=== PATIENT | female | born 1995 | race American Indian/Alaskan Native ===

== ENCOUNTER 2018-01-14 07:38 | Emergency (ER) | payer OTHER ==
[2018-01-14 07:59] VITALS: BP 95/60
--- NOTE | 2018-01-14 08:43 | EDM.PDOC ---
ED HPI GENERAL MEDICAL PROBLEM - General Chief Complaint: Cardiovascular Problem Stated Complaint: LOW BLOOD PRESSURE Time Seen by Provider: 01/14/18 08:12 Source of Information: Reports: Patient, RN Notes Reviewed, Other (deputy probation officer) History Limitations: Reports: No Limitations - History of Present Illness INITIAL COMMENTS - FREE TEXT/NARRATIVE: The patient is an inmate at the [facility]. She states that she felt lightheaded while standing in line for breakfast this morning. She states that she had only been standing for about 2 or 3 minutes, and when she sat down, she did not feel any better. She was taken to the nurse's station, where she states she vomited. No prior similar symptoms. The patient states that she was started on prazosin last night, to help treat her nightmares. The patient does not have a history of hypertension. Here in the ED, the patient's initial BP is found to be 95/60 with a HR of 65. The patient does not of the PCP outside of the [facility]. - Related Data Allergies Allergy/AdvReac Type Severity Reaction Status Date / Time No Known Allergies Allergy Verified 01/14/18 07:52 Home Meds: Home Meds Escitalopram [Lexapro] 10 mg PO BEDTIME 01/14/18 [History] Omeprazole 20 mg PO DAILY 01/14/18 [History] Prazosin HCl [Prazosin] 1 mg PO BEDTIME 01/14/18 [History] QUEtiapine Fumarate [Seroquel] 50 mg PO BEDTIME 01/14/18 [History] Past Medical History Gastrointestinal History: Reports: GERD Psychiatric History: Reports: Anxiety, Depression, Other (See Below) (Insomnia) Endocrine/Metabolic History: Reports: Obesity/BMI 30+ - Past Surgical History GI Surgical History: Reports: Cholecystectomy Social & Family History - Tobacco Use Smoking Status *Q: Never Smoker - Caffeine Use Caffeine Use: Reports: None - Alcohol Use Alcohol Use History: Yes Alcohol Use Frequency: Socially - Recreational Drug Use Recreational Drug Use: Yes Drug Use in Last 12 Months: Yes Recreational Drug Type: Reports: Methamphetamine (last smoked and injected in 2017) - Living Situation & Occupation Living situation: Reports: Single, Other ([facility]) ED ROS GENERAL - Review of Systems Review Of Systems: ROS reveals no pertinent complaints other than HPI. ED EXAM, GENERAL - Physical Exam Exam: See Below Exam Limited By: No Limitations General Appearance: Alert, WD/WN, No Apparent Distress Eye Exam: Bilateral Eye: EOMI, Normal Inspection Ears: Normal External Exam, Hearing Grossly Normal Nose: Normal Inspection Throat/Mouth: Normal Inspection, Normal Lips, Normal Voice, No Airway Compromise Head: Atraumatic, Normocephalic Neck: Normal Inspection, Full Range of Motion Respiratory/Chest: No Respiratory Distress, Lungs Clear, Normal Breath Sounds, No Accessory Muscle Use Cardiovascular: Normal Peripheral Pulses, Regular Rate, Rhythm, No Edema, No Gallop, No JVD, No Murmur, No Rub Peripheral Pulses: 4+: Radial (L), Radial (R) GI/Abdominal: Normal Bowel Sounds, Soft, Non-Tender, No Organomegaly, No Distention, No Abnormal Bruit, No Mass (Female) Exam: Deferred Rectal (Female) Exam: Deferred Back Exam: Normal Inspection, Full Range of Motion, NT Extremities: Normal Inspection, Normal Range of Motion, No Pedal Edema, Normal Capillary Refill Neurological: Alert, Oriented, Normal Cognition, No Motor/Sensory Deficits Psychiatric: Normal Affect Skin Exam: Warm, Dry, Intact, Normal Color, No Rash Course - Vital Signs Last Recorded V/S: Last Vital Signs Temp 36.9 C 01/14/18 07:57 Pulse 65 01/14/18 07:57 Resp 20 01/14/18 07:57 BP 95/60 01/14/18 07:57 Pulse Ox 98 01/14/18 07:57 Orthostatic Blood Pressure [ 99/67 Standing] Orthostatic Blood Pressure [ 106/68 Sitting] Orthostatic Blood Pressure [ 93/55 Supine] - Orders/Labs/Meds Orders: Active Orders 24 hr Category Date Time Status Orthostatic Vital Signs [RC] STAT Care 01/14/18 08:14 Active - Re-Assessments/Exams Free Text/Narrative Re-Assessment/Exam: 01/14/18 08:35 The patient was started on prazosin 1 mg last night, to help treat nightmares, and while this is a recognized indication for this medicine, it is also a powerful alpha-1 haley and antihypertensive. I believe it would be better to get this medication if the patient has a history of hypertension, which this patient does not. I'm therefore recommending that the patient discontinue it. The duration of this medication is 10 to 24 hours, therefore she will likely be lightheaded upon standing for most of the day, but should feel better by tomorrow. The patient is not orthostatic. This is consistent with her hypotension being due to the prazosin, as opposed to intravascular depletion. I do not see an indication for any other workup at this time, given her history and entirely negative physical examination. If her symptoms persist, or if new symptoms develop, I would like her to return to the ED. Departure - Departure Time of Disposition: 08:37 Disposition: Home, Self-Care 01 Condition: Good Clinical Impression: Hypotension due to medication Instructions: Hypotension, [id number] Referrals: Anyi Mcqueen PA-C [Primary Care Provider] - Forms: ED Department Discharge Additional Instructions: You were seen in the emergency room for lightheadedness, after being started on prazosin last night. In the ER, your blood pressure was found to be low at 95/60. Workup in the ER included positional blood pressure checks, which were normal. You are not intravascularly depleted. Based on your history and physical examination, the cause of your low blood pressure is the prazosin, and while this medication can be used to help treat nightmares, it is best used on someone who also has hypertension. We recommend that you DISCONTINUE taking prazosin. Prazosin will continue to lower your blood pressure for 10 to 24 hours from the time you took it, so you should expect to remain lightheaded when standing until later today or even tonight, however, you should feel better by tomorrow. If your low blood pressure persists, or if new symptoms develop, please return to the ER for reevaluation. - My Orders Last 24 Hours: My Active Orders 01/14/18 08:14 Orthostatic Vital Signs [RC] STAT - Assessment/Plan Last 24 Hours: My Active Orders 01/14/18 08:14 Orthostatic Vital Signs [RC] STAT
== END 2018-01-14 08:52 | disposition home or self-care (01) ==
LOC: JD.ED 07:38 → EEVIPCON 07:38 → JD.ED 08:52
DX: I95.2 Hypotension due to drugs (principal); E66.9 Obesity, unspecified
CPT/HCPCS: 99283; 99284

== ENCOUNTER 2018-05-04 22:01 | Emergency (ER) | payer OTHER ==
[2018-05-04 22:25] VITALS: BP 103/51
[2018-05-04] MEDS ORDERED: Sodium Chloride 0.9% 10 ML Syringe FLUSH PRN (22:52)
[2018-05-04] MEDS ORDERED: Ondansetron 4 MG/2 ML SDV IVPUSH ONE (22:52)
[2018-05-04] MEDS ORDERED: Sodium Chloride 0.9% 1,000 ML IV SCH (23:00)
--- NOTE | 2018-05-05 01:17 | EDM.PDOCBH ---
ED HPI GENERAL MEDICAL PROBLEM - General Chief Complaint: Drug or Alcohol Abuse Stated Complaint: TAKEN PILLS SENT FROM [facility] Time Seen by Provider: 05/04/18 22:29 Source of Information: Reports: Patient History Limitations: Reports: No Limitations - History of Present Illness INITIAL COMMENTS - FREE TEXT/NARRATIVE: [facility] [place] for acetaminophen overdose. She says she took the meds at 1930 this evening. She denies being suicidal. She says she took them because she was hurting. She has some nausea and upper abdominal pain. She has no fever, chills, cough, congestion, runny nose, chest pain or shortness of breath. She has no depression. She has hurt herself in the past but she says again that she was not trying to kill herself tonight. She also took 2 other capsules. She is not sure what these were. Onset: Sudden Duration: Hour(s): (1930 tonight) Location: Reports: Abdomen Quality: Reports: Ache Severity: Mild Improves with: Reports: None Worsens with: Reports: None Associated Symptoms: Reports: Nausea/Vomiting. Denies: Chest Pain, Fever/Chills , Headaches, Shortness of Breath Abdominal Pain Score (Numeric/FACES): 8 - Related Data Allergies Allergy/AdvReac Type Severity Reaction Status Date / Time No Known Allergies Allergy Verified 05/04/18 22:26 Home Meds: Home Meds Escitalopram [Lexapro] 20 mg PO DAILY 05/04/18 [History] Mirtazapine 15 mg PO DAILY 05/04/18 [History] Triamcinolone Acetonide 1 applicful TOP DAILY 05/04/18 [History] Past Medical History - Past Health History Medical/Surgical History: Denies Medical/Surgical History Gastrointestinal History: Reports: GERD Psychiatric History: Reports: Anxiety, Depression, Other (See Below) Endocrine/Metabolic History: Reports: Obesity/BMI 30+ - Past Surgical History GI Surgical History: Reports: Cholecystectomy Social & Family History - Tobacco Use Smoking Status *Q: Never Smoker Second Hand Smoke Exposure: No - Caffeine Use Caffeine Use: Reports: Coffee, Soda - Recreational Drug Use Recreational Drug Use: Yes Drug Use in Last 12 Months: No - Living Situation & Occupation Living situation: Reports: Single, Other ([facility]) ED ROS GENERAL - Review of Systems Review Of Systems: See Below Constitutional: Reports: No Symptoms HEENT: Reports: No Symptoms Respiratory: Reports: No Symptoms Cardiovascular: Reports: No Symptoms Endocrine: Reports: No Symptoms GI/Abdominal: Reports: Abdominal Pain, Nausea. Denies: Diarrhea, Vomiting : Reports: No Symptoms ED EXAM, BEHAVIORAL HEALTH - Physical Exam Exam: See Below Exam Limited By: No Limitations General Appearance: Alert, No Apparent Distress Ears: Normal External Exam Nose: Normal Inspection Head: Atraumatic, Normocephalic Neck: Normal Inspection Respiratory/Chest: No Respiratory Distress, Lungs Clear, Normal Breath Sounds Cardiovascular: Regular Rate, Rhythm, No Edema, No Murmur GI/Abdominal: Soft, Non-Tender, No Organomegaly, No Mass Back Exam: Normal Inspection Extremities: Normal Inspection Neurological: Alert, No Motor/Sensory Deficits, Oriented x 3 COURSE, BEHAVIORAL HEALTH COMP - Course Vital Signs: Last Vital Signs Temp 98.2 F 05/04/18 22:19 Pulse 50 L 05/04/18 22:19 Resp 16 05/04/18 22:19 BP 103/51 L 05/04/18 22:19 Pulse Ox 98 05/04/18 22:19 Orders, Labs, Meds: Active Orders 24 hr Category Date Time Status Cardiac Monitoring [RC] . DIRECTED Care 05/04/18 22:52 Active Peripheral IV Care [RC] . DIRECTED Care 05/04/18 22:53 Active Sodium Chloride 0.9% [Normal Saline] 1,000 ml Med 05/04/18 23:00 Active IV .BOLUS Sodium Chloride 0.9% [Saline Flush] Med 05/04/18 22:52 Active 10 ml FLUSH ASDIRECTED PRN ED Antiemetic Medication Reflex [OM.PC] Stat Oth 05/04/18 22:52 Ordered Peripheral IV Insertion Adult [OM.PC] Stat Oth 05/04/18 22:52 Ordered Medication Orders Sodium Chloride (Normal Saline) 1,000 mls @ 1,000 mls/hr IV .BOLUS TOM Last Admin: 05/04/18 23:29 Dose: 1,000 mls/hr Sodium Chloride (Saline Flush) 10 ml FLUSH ASDIRECTED PRN PRN Reason: Keep Vein Open Last Admin: 05/04/18 23:29 Dose: 10 ml Laboratory Tests 01/24/19 01/24/19 01/24/19 Range/Units 22:57 23:30 23:30 WBC 7.72 (3.98-10.04) K/mm3 RBC 4.65 (3.98-5.22) M/mm3 Hgb 12.8 (11.2-15.7) gm/L Hct 39.1 (34.1-44.9) % MCV 84.1 (79.4-94.8) fl MCH 27.5 (25.6-32.2) pg MCHC 32.7 (32.2-35.5) g/dl RDW Std Deviation 40.9 (36.4-46.3) fL Plt Count 254 (182-369) K/mm3 MPV 9.8 (9.4-12.3) fl Neut % (Auto) 63.8 (34.0-71.1) % Lymph % (Auto) 26.4 (19.3-51.7) % Alpine % (Auto) 7.9 (4.7-12.5) % Eos % (Auto) 1.7 (0.7-5.8) Baso % (Auto) 0.1 (0.1-1.2) % Neut # (Auto) 4.92 (1.56-6.13) K/mm3 Lymph # (Auto) 2.04 (1.18-3.74) K/mm3 Alpine # (Auto) 0.61 H (0.24-0.36) K/mm3 Eos # (Auto) 0.13 (0.04-0.36) K/mm3 Baso # (Auto) 0.01 (0.01-0.08) K/mm3 Sodium 141 (136-145) mEq/L Potassium 3.9 (3.5-5.1) mEq/L Chloride 106 (98-107) mEq/L Carbon Dioxide 25 (21-32) mEq/L Anion Gap 13.9 (5-15) BUN 13 (7-18) mg/dL Creatinine 0.8 (0.55-1.02) mg/dL Est Cr Clr Drug Dosing 97.57 mL/min Estimated GFR (MDRD) > 60 (>60) mL/min BUN/Creatinine Ratio 16.3 (14-18) Glucose 94 (74-106) mg/dL Calcium 9.1 (8.5-10.1) mg/dL Total Bilirubin 0.9 (0.2-1.0) mg/dL AST 24 (15-37) U/L ALT 38 (14-59) U/L Alkaline Phosphatase 84 (46-116) U/L Total Protein 7.4 (6.4-8.2) g/dl Albumin 3.9 (3.4-5.0) g/dl Globulin 3.5 gm/dL Albumin/Globulin Ratio 1.1 (1-2) Salicylates (2.8-20) mg/dL Urine Opiates Screen Negative (XJUOTF=393) Ur Buprenorphine Scrn Negative (CUTOFF=10) Ur Oxycodone Screen Negative (IYZ3DH=971) Urine Methadone Screen Negative (QWBFCQ=351) Ur Propoxyphene Screen Negative (TFHGPX=403) Acetaminophen (10-30) ug/mL Ur Barbiturates Screen Negative (LJCJDY=649) Ur Tricyclics Screen Negative (ZIHTFQ=119) Ur Phencyclidine Scrn Negative (CUTOFF=25) Ur Amphetamine Screen Negative (XCZGHU=825) U Methamphetamines Scrn Negative (VIYXNP=317) U Benzodiazepines Scrn Negative (LBDPJA=923) U Cocaine Metab Screen Negative (ZUXOKX=916) U Marijuana (THC) Screen Negative (CUTOFF=50) Ethyl Alcohol 0.00 (0.00) gm% 05/04/18 05/04/18 Range/Units 23:30 23:30 WBC (3.98-10.04) K/mm3 RBC (3.98-5.22) M/mm3 Hgb (11.2-15.7) gm/L Hct (34.1-44.9) % MCV (79.4-94.8) fl MCH (25.6-32.2) pg MCHC (32.2-35.5) g/dl RDW Std Deviation (36.4-46.3) fL Plt Count (182-369) K/mm3 MPV (9.4-12.3) fl Neut % (Auto) (34.0-71.1) % Lymph % (Auto) (19.3-51.7) % Alpine % (Auto) (4.7-12.5) % Eos % (Auto) (0.7-5.8) Baso % (Auto) (0.1-1.2) % Neut # (Auto) (1.56-6.13) K/mm3 Lymph # (Auto) (1.18-3.74) K/mm3 Alpine # (Auto) (0.24-0.36) K/mm3 Eos # (Auto) (0.04-0.36) K/mm3 Baso # (Auto) (0.01-0.08) K/mm3 Sodium (136-145) mEq/L Potassium (3.5-5.1) mEq/L Chloride (98-107) mEq/L Carbon Dioxide (21-32) mEq/L Anion Gap (5-15) BUN (7-18) mg/dL Creatinine (0.55-1.02) mg/dL Est Cr Clr Drug Dosing mL/min Estimated GFR (MDRD) (>60) mL/min BUN/Creatinine Ratio (14-18) Glucose (74-106) mg/dL Calcium (8.5-10.1) mg/dL Total Bilirubin (0.2-1.0) mg/dL AST (15-37) U/L ALT (14-59) U/L Alkaline Phosphatase (46-116) U/L Total Protein (6.4-8.2) g/dl Albumin (3.4-5.0) g/dl Globulin gm/dL Albumin/Globulin Ratio (1-2) Salicylates 0.3 L (2.8-20) mg/dL Urine Opiates Screen (PMIATW=807) Ur Buprenorphine Scrn (CUTOFF=10) Ur Oxycodone Screen (BYI4IC=997) Urine Methadone Screen (BGYKLL=929) Ur Propoxyphene Screen (LMZQYV=822) Acetaminophen 0 L (10-30) ug/mL Ur Barbiturates Screen (MADQXK=490) Ur Tricyclics Screen (CXRGKC=526) Ur Phencyclidine Scrn (CUTOFF=25) Ur Amphetamine Screen (TIWCLN=815) U Methamphetamines Scrn (HZESSP=669) U Benzodiazepines Scrn (NYBPJB=839) U Cocaine Metab Screen (QLYONL=931) U Marijuana (THC) Screen (CUTOFF=50) Ethyl Alcohol (0.00) gm% Medications Generic Name Dose Route Start Last Admin Trade Name Freq PRN Reason Stop Dose Admin Sodium Chloride 1,000 mls @ 1,000 mls/hr 05/04/18 23:00 05/04/18 23:29 Normal Saline IV 1,000 mls/hr .BOLUS TOM Administration Sodium Chloride 10 ml 05/04/18 22:52 05/04/18 23:29 Saline Flush FLUSH 10 ml ASDIRECTED PRN Administration Keep Vein Open Discontinued Medications Generic Name Dose Route Start Last Admin Trade Name Luisq PRN Reason Stop Dose Admin Ondansetron HCl 4 mg 05/04/18 22:52 05/04/18 23:29 Zofran IVPUSH 05/04/18 22:53 4 mg ONETIME ONE Administration Re-Assessment/Re-Exam: I ordered an IV NS 1L bolus, zofran 4mg IV, and labs. Her CBC and CMP look good. She had normal liver enzymes. Her acetaminophen was zero. She is sure of the time she took the acetaminophen. At this time there is none in her system. Her salicylates were low. Her UDS was negative and ETOH was negative. She feels better. I will discharge her home. Departure - Departure Time of Disposition: 01:20 Disposition: Home, Self-Care 01 Condition: Good Clinical Impression: Overdose by acetaminophen Qualifiers: Encounter type: initial encounter Injury intent: accidental or unintentional Qualified Code(s): T39.1X1A - Poisoning by 4-Aminophenol derivatives, accidental (unintentional), initial encounter - Discharge Information *PRESCRIPTION DRUG MONITORING PROGRAM REVIEWED*: No *COPY OF PRESCRIPTION DRUG MONITORING REPORT IN PATIENT DEEPTHI: No Referrals: PCP,None [Primary Care Provider] - Additional Instructions: Take your medication as prescribed. Please return if you are worse. - My Orders Last 24 Hours: My Active Orders 05/04/18 22:52 Cardiac Monitoring [RC] . DIRECTED Sodium Chloride 0.9% [Saline Flush] 10 ml FLUSH ASDIRECTED PRN ED Antiemetic Medication Reflex [OM.PC] Stat Peripheral IV Insertion Adult [OM.PC] Stat 05/04/18 22:53 Peripheral IV Care [RC] . DIRECTED 05/04/18 23:00 Sodium Chloride 0.9% [Normal Saline] 1,000 ml IV .BOLUS - Assessment/Plan Last 24 Hours: My Active Orders 05/04/18 22:52 Cardiac Monitoring [RC] . DIRECTED Sodium Chloride 0.9% [Saline Flush] 10 ml FLUSH ASDIRECTED PRN ED Antiemetic Medication Reflex [OM.PC] Stat Peripheral IV Insertion Adult [OM.PC] Stat 05/04/18 22:53 Peripheral IV Care [RC] . DIRECTED 05/04/18 23:00 Sodium Chloride 0.9% [Normal Saline] 1,000 ml IV .BOLUS
== END 2018-05-05 01:27 | disposition home or self-care (01) ==
LOC: JD.ED 22:01
DX: T39.1X1A Poisoning by 4-Aminophenol derivatives, accidental (unintentional), initial encounter (principal); K21.9 Gastro-esophageal reflux disease without esophagitis; R11.2 Nausea with vomiting, unspecified; F41.9 Anxiety disorder, unspecified; F32.9 Major depressive disorder, single episode, unspecified; Z79.899 Other long term (current) drug therapy
CPT/HCPCS: 36415; 80053; 80306; 85025; 96361; 96374; 99284; G0480; J2405; J7040